=== PATIENT | male | born 1945 | race Caucasian/White ===

== ENCOUNTER → 2019-02-16 | Outpatient (CLI) | payer MEDICARE ==
[2019-02-16 16:16] LABS: Appearance,Urine Clear (Clear); Bilirubin,Urine Negative (Negative); Blood,Urine Negative (Negative); Color,Urine Yellow; Glucose,Urine (UA) Negative (Negative); Ketones,Urine Negative (Negative); Leukocyte Esterase,Urine Negative (Negative); Nitrite,Urine Negative (Negative); Protein,Urine Negative (Negative); Specific Gravity,Urine 1.017 (1.001-1.035); Urobilinogen,Urine <2.0 mg/dL (<2.0)
== END ==
LOC: LABPAT 15:15
PROVIDERS: ATTEND Orthopaedic Surgery
DX: Z01.812 Encounter for preprocedural laboratory examination (principal)
CPT/HCPCS: 81003; 85730; 87070

== ENCOUNTER 2019-03-01 05:46 | Inpatient (IN) | payer MEDICARE ==
[~2019-03-01 05:46] MED LIST: ACETAMINOPHEN TAB 500 MG TAB PO ONE; DEXAMETHASONE SOD PHOSPHATE 10 MG/ML 1 ML VIAL IV ONE; MELOXICAM 7.5 MG TAB PO ONE; MIDAZOLAM 2 MG/2 ML VIAL IV PRN; ONDANSETRON 4 MG/2 ML VIAL IVP ONE; SCOPOLAMINE 1.5MG/72HR PATCH TRANSDERM ONE; TRANEXAMIC ACID 1,000 MG in SODIUM CHLORIDE 0.9% 100 ML IVPB ONE; ceFAZolin IN SWFI 2 GM/20 ML SYRINGE IVP ONE; fentaNYL (PF) 50 MCG/ML 2 ML AMP IV PRN
[2019-03-01] MEDS ORDERED: LIDOCAINE 1% 20 ML VIAL (10MG/ML) FOR IV START INTRADERMA ONE (06:20)
[2019-03-01] MEDS: LACTATED RINGERS 1,000 ML IV SCH ×2 (06:20→09:29)
[2019-03-01] MEDS ORDERED: fentaNYL (PF) 50 MCG/ML 2 ML AMP ONE (06:55)
[2019-03-01] MEDS ORDERED: MIDAZOLAM 2 MG/2 ML VIAL ONE (06:55)
[2019-03-01] MEDS ORDERED: SODIUM CHLORIDE 0.9% 100 ML BAG ONE (06:55)
[2019-03-01] MEDS ORDERED: PHENYLEPHRINE-0.9% NACL SYG 1 MG/10 ML SYRINGE ONE (06:55)
[2019-03-01] MEDS ORDERED: TRANEXAMIC ACID 1,000 MG/10 ML VIAL ONE (06:55)
[2019-03-01] MEDS ORDERED: PROPOFOL 10 MG/ML 20 ML VIAL IV ONE (06:55)
[2019-03-01] MEDS ORDERED: BISACODYL 10 MG SUPP RECTAL PRN (06:57)
[2019-03-01] MEDS ORDERED: DIAZEPAM 5 MG TAB PO PRN (06:57)
[2019-03-01] MEDS ORDERED: MAGNESIUM HYDROXIDE 2,400 MG/10 ML CUP PO PRN (06:57)
[2019-03-01] MEDS ORDERED: HYDROmorphone 0.5 MG/0.5 ML SYRINGE IVP PRN ×2 (06:57)
[2019-03-01] MEDS ORDERED: HYDROcodone/APAP 5-325MG 1 EACH TAB PO PRN (06:57)
[2019-03-01] MEDS ORDERED: NA PHOS,M-B/NA PHOS,DI-BA 133 ML ENEMA RECTAL PRN (06:57)
[2019-03-01] MEDS ORDERED: NALOXONE 0.4 MG/ML 1 ML VIAL IV PRN (06:57)
[2019-03-01] MEDS ORDERED: ONDANSETRON 4 MG/2 ML VIAL IVP PRN (06:57)
[2019-03-01] MEDS ORDERED: LACTATED RINGERS 1,000 ML IV ONE ×2 (07:00→08:00)
[2019-03-01] MEDS ORDERED: ceFAZolin 3,000 MG in SODIUM CHLORIDE 0.9% IRRIGATIO 3,000 ML IRRIGATION ONE (07:30)
[2019-03-01] MEDS: ROPIVACAINE 246.25 MG, EPINEPHrine 0.5 MG, KETOROLAC 30 MG, WATER FOR INJECTION,STERILE... MISCELLANE ONE ×12 (07:32→09:29)
--- NOTE | 2019-03-01 08:49 | P.OP ---
Date of Procedure: 03/01/19 Preoperative Diagnosis: Severe osteoarthritis right knee Postoperative Diagnosis: Severe osteoarthritis right knee Procedure(s) Performed: Right total knee arthroplasty Implants: Tan and Nephew Journey II CR Oxinium cruciate retaining femoral component size 6, right Tan & Nephew Journey right nonporous tibial baseplate size 6 Tan & Nephew Journey II, XLPE CR articular insert, size 9 mm, Size 5-6 right Tan & Nephew Journey BCS resurfacing oval patellar component, 32 mm All components were cemented using Palacos R bone cement.. The articulation is Oxinium on polyethylene. Anesthesia: spinal Surgeon: Tripp Odonnell Slot Attendant #1: Poonam Aguilera Estimated Blood Loss (ml): 50 Pathology: other (Bone and cartilage) Condition: stable Disposition: PACU Indications for Procedure: After failure of conservative treatment we discussed the surgical and nonsurgical treatment options at length. Patient wishes to proceed with a total knee arthroplasty. Complications specific to this procedure were discussed at length, including but not limited to infection, bleeding, stiffness, and nerve injury. Patient is aware of all these complications and informed consent was obtained Operative Findings: The operative findings are consistent with severe osteoarthritis of the right knee Description of Procedure: Patient was seen in the preoperative area consent was reviewed and operative site was marked with a skin marker. An adductor canal pain catheter was placed by anesthesia in the preoperative area. Patient was then brought to the operating room and given preoperative antibiotics intravenously. A spinal anesthetic was administered by the anesthesia department. A tourniquet was placed on the upper thigh and the lower extremity was prepped and draped in usual sterile fashion. A gram of transexamic acid was given. A universal timeout was then performed which confirmed the patient's name, surgical site, ALLERGIES, and consent. The lower extremity was then exsanguinated and tourniquet was inflated to 250 mmHg. A standard and anterior midline approach to the knee was performed. The skin and subcutaneous tissue was dissected down to the patellar tendon. A medial parapatellar arthrotomy was then performed. The knee was then extended, the patellar was everted, and the knee was again flexed. Anterior horns of both menisci were excised, and a release was performed to the posterior medial aspect of the knee. On gross visual inspection, there was complete loss of articular cartilage in the medial and patellofemoral joint spaces. There was also significant cartilage damage in the lateral compartment. There were multiple periarticular osteophytes which were then removed with a Ronguer. The femoral canal was then opened with the appropriate drill, and the intramedullary femoral cutting guide was then placed and set for 5 of valgus. The distal femoral cutting block was then pinned in place, and the distal femur was then cut. The cutting block was then removed and the cut was checked for flatness. Next, the sizing guide was then placed and set for 3 external rotation based off of the epicondylar axis and Whitesides line. After the femur was sized, the appropriate 4-in-1 cutting block was then pinned in place. The anterior condyles were cut without notching. The posterior and chamfer cuts were performed while protecting the collateral ligaments. The cutting block was then removed, and the femoral canal was plugged with autologous bone. Attention was then directed to the tibia. The remaining ACL was removed with a Ronguer, and the tibia was then gently subluxed forward with a large bent knee retractor. Any remaining menisci was excised. The posterior lateral corner was cauterized in order to cauterize the lateral geniculate artery. The extra medullary tibial cutting guide was then placed, set for the appropriate rotation, slope, and depth of resection. The proximal tibia cutting guide was then pinned in place. Proximal tibia was then cut and sized. Next trials were then placed with the appropriate-sized insert. The knee was able to fully extend and flex to 130 and was stable throughout all range of motion. The knee was then extended, patella everted. Patella was then measured, and then using an osteotomy guide, the patella was cut at the appropriate level. The patella was then measured and drilled and the patella trial was then placed. The knee was then taken through range of motion with the patella trial and the patella tracked normally. The knee was then extended patella trial was then removed and the patella was everted. Knee was then flexed and lug holes were drilled through the femoral trial and the femoral trial was then removed. The tibial was then exposed, and the tibial broach guide was then pinned in place after it was set for the appropriate rotation to allow for the most coverage without overhang. The tibia was then reamed and broached. The cut surfaces of bone were then irrigated with pulsatile lavage. The posterior structures were injected with the ropivacaine solution. The knee was also irrigated with Irrisept solution. The components were then opened, the cement was mixed, and the components were then cemented in place. The cement was allowed to harden with the knee in full extension. While the cement was hardening, the remaining soft tissues were then injected with a ropivacaine solution, which consisted of 246.25 mg of ropivacaine, 0.5 mg of epinephrine, 30 mg of Toradol, 80 g of clonidine, and 48.45 mL of sterile water, for a total of 100 mL of fluid injected. After the cemented hardened. The tourniquet was released, and hemostasis was obtained. A second gram of transexamic acid was given. The knee was again irrigated. The knee was again taken through range of motion and found to be stable throughout all range of motion of 0-130, and the patella tracked normally. The fascia was then closed with #2 strata fix suture. The subcutaneous tissue was closed with 3-0 Vicryl and 3-0 strata fix. Dermabond glue was used for the skin and placed with the knee in flexion. The patient was placed in a sterile silver dressing. Patient was then transferred to recovery room in stable condition. The salon assistant APOLINAR Guerra was required due the complexity surgery and the need for a skilled surgical orderly. She assisted in positioning, draping, retraction, and closure of the wound.
[2019-03-01] MEDS ORDERED: ROPIVACAINE 1,100 MG, SODIUM CHLORIDE 0.9% 500 ML 330 ML MISCELLANE PRN ×2 (08:57)
--- NOTE | 2019-03-01 09:09 | XR ---
EXAMINATION TYPE: XR knee limited RT DATE OF EXAM: 03/01/2019 COMPARISON: NONE TECHNIQUE: Two views submitted HISTORY: Post op FINDINGS: There is a prosthetic knee in near anatomic alignment. There is soft tissue edema and emphysema. IMPRESSION: 1. Postoperative change. Appears in near-anatomic alignment
[2019-03-01] MEDS: SODIUM CHLORIDE 0.9% 1,000 ML IV SCH (09:30)
[2019-03-01] MEDS: ASPIRIN 325 MG TAB PO SCH ×2 (09:30→21:46)
[2019-03-01 10:21] VITALS: BMI 28.3
--- NOTE | 2019-03-01 11:28 | P.ANPRN ---
Procedure Note - Anesthesia - Nerve Block Performed Right Adductor Canal Infusion Time Out Performed: Yes Date of Procedure: 03/01/19 Procedure Start Time: 06:28 Procedure Stop Time: 06:38 Location of Patient Procedure: PreOp Indication: Acute Post-Operative Pain, Requested by physician Sedation Type: Sedate with meaningful contact maintained Preparation: Sterile Prep, Sterile Dressing Position: Supine Catheter: Indwelling Needle Types: Pajunk Needle Gauge: 21 Technique: Ultrasound Injectate: 0.5% Ropivacaine (see comment for volume) (ropi .5% 20cc) Blood Aspirated: No Pain Paresthesia on Injection Noted: No Resistance on Injection: Normal Events: Uneventful and Well Tolerated
[2019-03-01] MEDS: HYDROmorphone 0.5 MG/0.5 ML SYRINGE IVP PRN (13:05)
--- NOTE | 2019-03-01 13:15 | P.CONS ---
History of Present Illness - Reason for Consult Perioperative complication management - History of Present Illness Patient is a pleasant 73-year-old gentleman admitted for right knee arthroplasty sepsis and underwent surgery clinically doing well denied any fever chills nausea vomiting abdominal pain dysuria. Patient pain is well controlled at this time. is on ceftezole in as a perioperative antibiotics. Patient on aspirin twice a day for DVT prophylaxis. Review of Systems REVIEW OF SYSTEMS: CONSTITUTIONAL: No fever, no malaise, no fatigue. HEENT: No recent visual problems or hearing problems. Denied any sore throat. CARDIOVASCULAR: No chest pain, orthopnea, PND, no palpitations, no syncope. PULMONARY: No shortness of breath, no cough, no hemoptysis. GASTROINTESTINAL: No diarrhea, no nausea, no vomiting, no abdominal pain. NEUROLOGICAL: No headaches, no weakness, no numbness. HEMATOLOGICAL: Denies any bleeding or petechiae. GENITOURINARY: Denies any burning micturition, frequency, or urgency. MUSCULOSKELETAL/RHEUMATOLOGICAL: Denies any joint pain, swelling, or any muscle pain. ENDOCRINE: Denies any polyuria or polydipsia. The rest of the 14-point review of systems is negative. Past Medical History Past Medical History: Cancer, Hyperlipidemia, Osteoarthritis (OA), Prostate Disorder Additional Past Medical History / Comment(s): PROSTATE CANCER History of Any Multi-Drug Resistant Organisms: None Reported Past Surgical History: Heart Catheterization, Tonsillectomy Additional Past Surgical History / Comment(s): COLONOSCOPY Past Anesthesia/Blood Transfusion Reactions: No Reported Reaction Past Psychological History: Anxiety, Depression Smoking Status: Former smoker Past Alcohol Use History: Daily Additional Past Alcohol Use History / Comment(s): STARTED SMOKING AT AGE 17 QUIT AGE 38 SMOKED 1/2PPD. STATES DRINKS 3 DRINKS A DAY Past Drug Use History: None Reported - Past Family History Mother Family Medical History: No Reported History Medications and Allergies Home Medications Medication Instructions Recorded Confirmed Type Aspirin EC [Ecotrin Low Dose] 81 mg PO DAILY 02/25/19 03/01/19 History Finasteride [Proscar] 5 mg PO DAILY 02/25/19 03/01/19 History Omeprazole 20 mg PO DAILY 02/25/19 03/01/19 History Sertraline HCl [Zoloft] 200 mg PO DAILY 02/25/19 03/01/19 History Simvastatin [Zocor] 80 mg PO HS 02/25/19 03/01/19 History buPROPion HCL [Wellbutrin XL] 300 mg PO DAILY 02/25/19 03/01/19 History busPIRone HCL [Buspar] 15 mg PO BID 02/25/19 03/01/19 History traZODone HCL [Desyrel] 100 mg PO HS 02/25/19 03/01/19 History Allergies Allergy/AdvReac Type Severity Reaction Status Date / Time Sulfa (Sulfonamide Allergy Rash/Hives Verified 03/01/19 10:49 Antibiotics) Physical Exam Vitals: Vital Signs Temp Pulse Pulse Pulse Resp BP Pulse Ox 03/01/19 12:08 69 140/78 03/01/19 11:42 75 16 129/80 98 03/01/19 11:12 76 16 132/83 99 03/01/19 10:58 70 16 132/85 03/01/19 10:42 63 16 116/75 97 03/01/19 10:27 64 16 138/87 99 03/01/19 10:13 62 16 131/81 100 03/01/19 09:57 65 16 130/69 99 03/01/19 09:42 97.0 F L 60 16 134/79 99 03/01/19 09:31 59 L 16 121/75 99 03/01/19 09:18 61 16 108/67 97 03/01/19 09:03 64 16 117/66 97 03/01/19 08:47 98.3 F 72 14 124/66 97 03/01/19 06:40 97 16 97 03/01/19 06:09 81 16 156/80 95 Intake and Output 02/28/19 03/01/19 03/01/19 22:59 06:59 14:59 Intake Total 200 1101 Output Total 50 Balance 200 1051 Intake: IV 200 1101 Output: Estimated Blood Loss 50 PHYSICAL EXAMINATION: GENERAL: The patient is alert and oriented x3, not in any acute distress. Well developed, well nourished. HEENT: Pupils are round and equally reacting to light. EOMI. No scleral icterus. No conjunctival pallor. Normocephalic, atraumatic. No pharyngeal erythema. No thyromegaly. CARDIOVASCULAR: S1 and S2 present. No murmurs, rubs, or gallops. PULMONARY: Chest is clear to auscultation, no wheezing or crackles. ABDOMEN: Soft, nontender, nondistended, normoactive bowel sounds. No palpable or ganomegaly. MUSCULOSKELETAL: No joint swelling or deformity. He post surgically pack no surgical drain in place EXTREMITIES: No cyanosis, clubbing, or pedal edema. NEUROLOGICAL: Gross neurological examination did not reveal any focal deficits. SKIN: No rashes. Assessment and Plan Plan: -Right knee arthroplasty, can you with present pain medications can you and is due to prophylaxis. -Hyperlipidemia -benign prostatic hypertrophy -Anxiety -depression For above-mentioned chronic medical problems patient will be resumed on appropriate home medications. -Alcohol abuse: Counseling was provided but the patient only drinks 3 beers a day do not expect any withdrawals but it's reasonable to start him on withdrawal precautions
[2019-03-01] MEDS: HYDROcodone/APAP 5-325MG 1 EACH TAB PO PRN (16:00)
[2019-03-01] MEDS: ceFAZolin IN SWFI 2 GM/20 ML SYRINGE IVP SCH (16:00)
[2019-03-01] MEDS ORDERED: traZODone HCL 100 MG TAB PO SCH (21:00)
[2019-03-01] MEDS ORDERED: SENNOSIDES-DOCUSATE SODIUM 1 EACH TAB PO SCH (21:00)
[2019-03-01] MEDS ORDERED: ATORVASTATIN 40 MG TAB PO SCH (21:00)
[2019-03-01] MEDS: busPIRone HCl 5 MG TAB PO SCH (21:46)
[2019-03-02] MEDS: SODIUM CHLORIDE 0.9% 1,000 ML IV SCH (00:59)
[2019-03-02] MEDS: ceFAZolin IN SWFI 2 GM/20 ML SYRINGE IVP SCH (00:59)
[2019-03-02] MEDS: HYDROcodone/APAP 5-325MG 1 EACH TAB PO PRN ×2 (02:20→08:29)
[2019-03-02] MEDS: hydrOXYzine PAMOATE 25 MG CAP PO PRN ×2 (02:20→12:36)
[2019-03-02] MEDS: HYDROmorphone 0.5 MG/0.5 ML SYRINGE IVP PRN (05:03)
[2019-03-02] MEDS ORDERED: PANTOPRAZOLE 40 MG TABLET PO SCH (07:30)
[2019-03-02 08:02] LABS: Basophils % (A) 0 %; Eosinophils # (A) 0.1 k/uL (0-0.7); Eosinophils % (A) 1 %; Lymphocytes % (A) 17 %; MCH 31.5 pg (25.0-35.0); MCHC 32.8 g/dL (31.0-37.0); MCV 96.1 fL (80.0-100.0); Mean Platelet Volume 7.1; Monocytes # (A) 0.5 k/uL (0-1.0); Monocytes % (A) 8 %; Neutrophils # (A) 4.1 k/uL (1.3-7.7); Neutrophils % (A) 72 %; Platelet Count 144 k/uL (150-450); RBC 3.75 m/uL (4.30-5.90); RDW 13.3 % (11.5-15.5); WBC 5.7 k/uL (3.8-10.6)
[2019-03-02 08:11] LABS: HGB 11.8 gm/dL (13.0-17.5)
[2019-03-02 08:25] VITALS: BP 123/76; PULSE 72; RESP 16; TEMP 98.3
[2019-03-02] MEDS: ASPIRIN 325 MG TAB PO SCH (08:28)
[2019-03-02] MEDS: busPIRone HCl 5 MG TAB PO SCH (08:29)
[2019-03-02] MEDS ORDERED: FINASTERIDE 5 MG TAB PO SCH (09:00)
[2019-03-02] MEDS ORDERED: SERTRALINE 100 MG TAB PO SCH (09:00)
[2019-03-02] MEDS ORDERED: buPROPion XL 300 MG TAB.ER.24H PO SCH (09:00)
[2019-03-02] MEDS ORDERED: MELOXICAM 7.5 MG TAB PO SCH (09:00)
--- NOTE | 2019-03-02 09:33 | P.DS ---
Providers Date of admission: 03/01/19 05:46 Attending physician: Tripp Odonnell Consults: 03/01/19 06:57 Consult Physician Routine Consulting Provider: Haley Menezes Consult Reason/Comments: medical management Do you want consulting provider notified?: Yes Primary care physician: Jamal Thompson [facility] Course: This is a 73-year-old male with known history of degenerative arthritis of the right knee. The patient presents for evaluation. After discussion and consideration patient elects to proceed with total knee arthroplasty. The patient is seen preoperatively by Dr. Odonnell and medically cleared for surgery by their primary care physician. Patient is admitted to [facility] on 03/01/2019 for total knee arthroplasty. The procedures performed without complication or sequelae. The patient is doing well postoperatively. Labs and vital signs are stable on day of discharge. On day of discharge patient's knee incision is healing well. There is minimal erythema. There is no drainage noted at this time. There is minimal soft tissue swelling to the knee. Patient has full foot and ankle motion without difficulty or pain. Calf is soft and nontender to palpation. Neurovascular status to the right lower extremity is intact. Patient is discharged home in good condition. Opioid start talking form is reviewed and signed at patient bedside. Please see med rec for accurate list of home medications. Plan - Discharge Summary Discharge Rx Participant: Yes New Discharge Prescriptions: New Aspirin 325 mg PO BID #60 tab HYDROcodone/APAP 5-325MG [Blairs 5-325] 1 - 2 tab PO Q6HR PRN #56 tab PRN Reason: Pain Sennosides [Senokot] 1 tab PO BID #60 tablet No Action Aspirin EC [Ecotrin Low Dose] 81 mg PO DAILY Omeprazole 20 mg PO DAILY Finasteride [Proscar] 5 mg PO DAILY Sertraline HCl [Zoloft] 200 mg PO DAILY busPIRone HCL [Buspar] 15 mg PO BID traZODone HCL [Desyrel] 100 mg PO HS buPROPion HCL [Wellbutrin XL] 300 mg PO DAILY Simvastatin [Zocor] 80 mg PO HS Discharge Medication List Aspirin EC [Ecotrin Low Dose] 81 mg PO DAILY 02/25/19 [History] Finasteride [Proscar] 5 mg PO DAILY 02/25/19 [History] Omeprazole 20 mg PO DAILY 02/25/19 [History] Sertraline HCl [Zoloft] 200 mg PO DAILY 02/25/19 [History] Simvastatin [Zocor] 80 mg PO HS 02/25/19 [History] buPROPion HCL [Wellbutrin XL] 300 mg PO DAILY 02/25/19 [History] busPIRone HCL [Buspar] 15 mg PO BID 02/25/19 [History] traZODone HCL [Desyrel] 100 mg PO HS 02/25/19 [History] Aspirin 325 mg PO BID #60 tab 03/02/19 [Rx] HYDROcodone/APAP 5-325MG [Blairs 5-325] 1 - 2 tab PO Q6HR PRN #56 tab 03/02/19 [Rx] Sennosides [Senokot] 1 tab PO BID #60 tablet 03/02/19 [Rx] Follow up Appointment(s)/Referral(s): Tripp Odonnell DO [Doctor of Osteopathic Medicine] - 2 Weeks Activity/Diet/Wound Care/Special Instructions: Weightbearing as tolerated with a walker. CPM 5-6h daily. Leave dressing intact. May be removed by home care nurse or by patient in 10 days. May shower with dressing on. Please follow up with [facility] and call with any questions or concerns, . Discharge Disposition: HOME WITH HOME HEALTH SERVICES
[2019-03-02] MEDS: LACTATED RINGERS 1,000 ML IV SCH (11:31)
--- NOTE | 2019-03-02 13:07 | P.PN ---
Subjective Patient had a right near the breast is being discharged today overall clinically doing well no overnight events. His discharge medication reconciliation was reviewed Constitutional: Denied any fatigue denied any fever. Cardio vascular: denied any chest pain, palpitations Gastrointestinal denied any nausea vomiting Pulmonary: Denied any shortness of breath cough Neurologic denied any new focal deficits All inpatient medications were reviewed and appropriate changes in these medications as dictated in the interval history and assessment and plan. Objective - Vital Signs Vital signs: Vital Signs Temp 98.3 F 03/02/19 06:57 Pulse 72 03/02/19 08:05 Resp 16 03/02/19 08:05 BP 123/76 03/02/19 06:57 Pulse Ox 99 03/02/19 06:57 Intake & Output 03/01/19 03/02/19 03/02/19 18:59 06:59 18:59 Intake Total 1101 Output Total 50 Balance 1051 Intake: IV 1101 Output: Estimated Blood Loss 50 Other: # Voids 1 1 1 - Exam PHYSICAL EXAMINATION: GENERAL: The patient is alert and oriented x3, not in any acute distress. Well developed, well nourished. HEENT: Pupils are round and equally reacting to light. EOMI. No scleral icterus. No conjunctival pallor. Normocephalic, atraumatic. No pharyngeal erythema. No thyromegaly. CARDIOVASCULAR: S1 and S2 present. No murmurs, rubs, or gallops. PULMONARY: Chest is clear to auscultation, no wheezing or crackles. ABDOMEN: Soft, nontender, nondistended, normoactive bowel sounds. No palpable organomegaly. MUSCULOSKELETAL: No joint swelling or deformity. He post surgically pack no surgical drain in place EXTREMITIES: No cyanosis, clubbing, or pedal edema. NEUROLOGICAL: Gross neurological examination did not reveal any focal deficits. SKIN: No rashes. - Labs CBC & Chem 7: 03/02/19 07:13 Labs: Abnormal Lab Results - Last 24 Hours (Table) 03/02/19 Range/Units 07:13 RBC 3.75 L (4.30-5.90) m/uL Hgb 11.8 L D (13.0-17.5) gm/dL Hct 36.0 L (39.0-53.0) % Plt Count 144 L (150-450) k/uL Assessment and Plan Plan: -Right knee arthroplasty, patient's pain is better and patient is being disch arged today -Hyperlipidemia -benign prostatic hypertrophy -Anxiety -depression -Alcohol abuse: Counseling was provided no alcohol withdrawal at this time
== END 2019-03-02 13:45 | disposition home health service (06) | DRG 470 ==
LOC: 2ORMAIN 05:46 → 4SSUR 09:06
PROVIDERS: ADMIT Orthopaedic Surgery; ATTEND Orthopaedic Surgery
PROC: 0SRC069 Replacement of Right Knee Joint with Oxidized Zirconium on Polyethylene Synthetic Substitute, Cemented, Open Approach (ICD-10-PCS; principal; 2019-03-01 07:00)
DX: M17.11 Unilateral primary osteoarthritis, right knee (principal); E78.5 Hyperlipidemia, unspecified; N40.0 Benign prostatic hyperplasia without lower urinary tract symptoms; K21.9 Gastro-esophageal reflux disease without esophagitis; F32.9 Major depressive disorder, single episode, unspecified; F41.9 Anxiety disorder, unspecified; F10.10 Alcohol abuse, uncomplicated; R26.81 Unsteadiness on feet; Z79.82 Long term (current) use of aspirin; Z79.899 Other long term (current) drug therapy; Z71.41 Alcohol abuse counseling and surveillance of alcoholic; Z87.891 Personal history of nicotine dependence; Z98.890 Other specified postprocedural states; Z85.46 Personal history of malignant neoplasm of prostate; Z88.2 Allergy status to sulfonamides; Z82.49 Family history of ischemic heart disease and other diseases of the circulatory system
CPT/HCPCS: 85025

== ENCOUNTER → 2020-04-16 | Outpatient (CLI) | payer MEDICARE, OTHER | END | disposition home or self-care (01) | LOC: LABWHC1 12:00 | PROVIDERS: ATTEND Radiology Radiation Oncology | DX: C61 Malignant neoplasm of prostate (principal) | CPT/HCPCS: 36415; 84153 ==

== ENCOUNTER → 2020-05-16 | Outpatient (CLI) | payer MEDICARE, OTHER ==
[2020-05-16 11:20] LABS: Basophils # (A) 0.1 k/uL (0-0.2); Basophils % (A) 1 %; Eosinophils # (A) 0.3 k/uL (0-0.7); Eosinophils % (A) 6 %; HCT 42.6 % (39.0-53.0); HGB 14.1 gm/dL (13.0-17.5); Lymphocytes % (A) 21 %; MCH 31.4 pg (25.0-35.0); MCV 95.3 fL (80.0-100.0); Mean Platelet Volume 7.4; Monocytes # (A) 0.3 k/uL (0-1.0); Monocytes % (A) 7 %; Neutrophils # (A) 2.9 k/uL (1.3-7.7); Neutrophils % (A) 62 %; Platelet Count 177 k/uL (150-450); RBC 4.47 m/uL (4.30-5.90); WBC 4.7 k/uL (3.8-10.6)
[2020-05-16 11:27] LABS: Calcium 9.8 mg/dL (8.4-10.2)
== END | disposition home or self-care (01) ==
LOC: LABPAT 10:12
PROVIDERS: ATTEND Urology
DX: Z01.818 Encounter for other preprocedural examination (principal); C61 Malignant neoplasm of prostate; R35.0 Frequency of micturition
CPT/HCPCS: 36415; 80048; 85025; 87086

== ENCOUNTER 2020-05-23 08:21 | Day surgery (SDC) | payer MEDICARE, OTHER ==
[2020-05-16 13:27] VITALS: BMI 27.3
--- NOTE | 2020-05-22 18:33 | P.GSHP ---
History of Present Illness H&P Date: 05/22/20 Chief Complaint: Prostate cancer The patient is a 74-year-old male who was originally diagnosed with prostate cancer in 2008 associated with a PSA of 3.51. Random biopsies showed a focus of [place] 3+3 = 6 cancer and the patient opted for active surveillance. Repeat biopsies in 11/2010 showed 3+3=6 cancer in 2 of 12 random biopsies. He again opted for further active surveillance and was also started on finasteride. Random biopsies in 2015 showed Isidra 3+4 = 7 cancer in the right lateral mid and right lateral apex and 3+3 = 6 cancer in the left apex. I encouraged the patient to consider definitive treatment at that time but he opted on further active surveillance. PSA was 3.7 in 06/15, 5.6 in 12/14, 5.0 in 03/16 and 5.7 in 11/17. TRUS on 02/24/2020 showed a prostate volume of 23 cc. Random biopsies showed Isidra 3+4 = 7 cancer in the right mid, right lateral apex, right apex and left apex. The prostate volume was 23 cc. The patient has now opted to proceed with external beam radiation therapy and is admitted for the purpose of SpaceOAR placement to reduce potential rectal toxicity. The patient usually voids every 1-1/2-2 hours during the day and once or twice at night. He has no gross hematuria or rectal bleeding. He describes a moderate urinary flow. He has remained on finasteride. - Constitutional Constitutional: Denies fever - EENT Ears, nose, mouth and throat: Denies vertigo - Cardiovascular Cardiovascular: Denies chest pain, Denies shortness of breath - Respiratory Respiratory: Denies cough, Denies wheezing - Gastrointestinal Gastrointestinal: Reports heartburn, Denies abdominal pain - Genitourinary (Male) Genitourinary: Reports as per HPI Past Medical History Past Medical History: Cancer, Hyperlipidemia, Osteoarthritis (OA), Prostate Disorder Additional Past Medical History / Comment(s): PROSTATE CANCER, heart murmur History of Any Multi-Drug Resistant Organisms: None Reported Past Surgical History: Heart Catheterization, Joint Replacement (Right total knee arthroplasty), Tonsillectomy Additional Past Surgical History / Comment(s): prostate biopsy, Rt knee replaced, COLONOSCOPY Past Anesthesia/Blood Transfusion Reactions: No Reported Reaction Smoking Status: Former smoker - Past Family History Mother Family Medical History: No Reported History Medications and Allergies Home Medications Medication Instructions Recorded Confirmed Type Aspirin EC [Ecotrin Low Dose] 81 mg PO DAILY 02/25/19 05/16/20 History Finasteride [Proscar] 5 mg PO DAILY 02/25/19 05/16/20 History Omeprazole 20 mg PO DAILY 02/25/19 05/16/20 History Simvastatin [Zocor] 80 mg PO HS 02/25/19 05/16/20 History traZODone HCL [Desyrel] 100 mg PO HS 02/25/19 05/16/20 History ARIPiprazole [Abilify] 5 mg PO DAILY 05/16/20 05/16/20 History Gabapentin [Neurontin] 100 mg PO TID 05/16/20 05/16/20 History Multivitamins, Thera [Multivitamin 1 tab PO DAILY 05/16/20 05/16/20 History (formulary)] Sertraline 150 mg PO DAILY 05/16/20 History Thiamine [Vitamin B-1] 100 mg PO DAILY 05/16/20 05/16/20 History Allergies Allergy/AdvReac Type Severity Reaction Status Date / Time Sulfa (Sulfonamide Allergy Rash/Hives Verified 05/16/20 13:19 Antibiotics) Surgical - Exam - General well developed, well nourished, no distress - ENT no hearing loss - Neck no masses, no lymphadectomy - Respiratory normal respiratory effort - Abdomen Abdomen: soft, no organomegaly Hernia: none - Genitourinary normal penis with no external lesions, testicles non-tender - Rectum Rectum: normal sphincter tone, no masses, other (Prostate is 1-2+ enlarged and benign to palpation) Assessment and Plan (1) Prostate cancer Narrative/Plan: The patient will undergo transperineal SpaceOAR placement under general anesthesia performed by Dr. Rm. He is aware of the operative risks which include anesthesia, hematuria or rectal bleeding, infection and temporary difficulty voiding. Status: Acute Code(s): C61 - MALIGNANT NEOPLASM OF PROSTATE SNOMED Code(s): 303683309
[~2020-05-23 08:21] MED LIST changes: -ACETAMINOPHEN TAB 500 MG TAB PO ONE; +HYDROmorphone 0.5 MG/0.5 ML SYRINGE IVP PRN; +LACTATED RINGERS 1,000 ML IV SCH; +LIDOCAINE 1% (10MG/ML) FOR IV START INTRADERMA PRN; -MELOXICAM 7.5 MG TAB PO ONE; -MIDAZOLAM 2 MG/2 ML VIAL IV PRN; +Pre Op ABX Message 1 EACH MISC MISCELLANE ONE; -SCOPOLAMINE 1.5MG/72HR PATCH TRANSDERM ONE; -TRANEXAMIC ACID 1,000 MG in SODIUM CHLORIDE 0.9% 100 ML IVPB ONE; -ceFAZolin IN SWFI 2 GM/20 ML SYRINGE IVP ONE; -fentaNYL (PF) 50 MCG/ML 2 ML AMP IV PRN
[2020-05-23] MEDS ORDERED: ONDANSETRON 4 MG/2 ML VIAL ONE (09:08)
[2020-05-23] MEDS ORDERED: LIDOCAINE 1% (10MG/ML) FOR IV START SQ ONE (09:12)
[2020-05-23] MEDS ORDERED: PROPOFOL 10 MG/ML 20 ML VIAL IV ONE (10:18)
[2020-05-23] MEDS ORDERED: fentaNYL (PF) 50 MCG/ML 2 ML AMP ONE (10:18)
[2020-05-23] MEDS ORDERED: MIDAZOLAM 2 MG/2 ML VIAL ONE (10:18)
[2020-05-23] MEDS ORDERED: LIDOCAINE 2% INJ 20 MG/ML SQ ONE (10:26)
[2020-05-23] MEDS ORDERED: LACTATED RINGERS 1,000 ML IV ONE (10:35)
[2020-05-23] MEDS ORDERED: ceFAZolin 1,000 MG VIAL IVPB ONE (10:38)
--- NOTE | 2020-05-23 11:10 | P.OP ---
Date of Procedure: 05/23/20 Preoperative Diagnosis: Prostate cancer Postoperative Diagnosis: Same Procedure(s) Performed: SpaceOar Implant Anesthesia: MAC Surgeon: Jose Rm Estimated Blood Loss (ml): 10 IV fluids (ml): 300 Pathology: none sent Condition: stable Disposition: PACU Indications for Procedure: The patient is a 74-year-old male who was originally diagnosed with prostate cancer in 2008 associated with a PSA of 3.51. Random biopsies showed a focus of [place] 3+3 = 6 cancer and the patient opted for active surveillance. Repeat biopsies in 11/2010 showed 3+3=6 cancer in 2 of 12 random biopsies. He again opted for further active surveillance and was also started on finasteride. Random biopsies in 2015 showed [place] 3+4 = 7 cancer in the right lateral mid and right lateral apex and 3+3 = 6 cancer in the left apex. I encouraged the patient to consider definitive treatment at that time but he opted on further active surveillance. PSA was 3.7 in 06/15, 5.6 in 12/14, 5.0 in 03/16 and 5.7 in 11/17. TRUS on 02/24/2020 showed a prostate volume of 23 cc. Random biopsies showed [place] 3+4 = 7 cancer in the right mid, right lateral apex, right apex and left apex. The prostate volume was 23 cc. The patient has now opted to proceed with external beam radiation therapy and is admitted for the purpose of SpaceOAR placement to reduce potential rectal toxicity. Operative Findings: Excellent separation created between prostate and rectum. Description of Procedure: The patient was taken to the operating room and placed in the dorsolithotomy position, with his legs supported in Brendan stirrups. The external genitalia was prepped and draped sterilely. The Bruel and Kjaer transrectal ultrasound probe was placed intrarectally. The prostate was imaged. The probe was then placed within the stabilizing stand. A spinal needle was advanced under ultrasonic guidance to the level of the urogenital diaphragm, and lidocaine was used to infiltrate the tissues as the needle was withdrawn. Next, the SpaceOAR needle was passed through the midline of the perineum, 1-2 cm anterior to the anal opening. The needle was slowly advanced under ultrasonic guidance until the needle tip was located within the fat plane between the prostate and rectum, at the level of the mid prostate gland. The needle was confirmed to be midline on the axial imaging. A small amount of normal saline was injected for hydrod issection. Next, the SpaceOAR components were mixed and loaded into the Y connector per protocol. The Y connector was then connected to the needle, and the components were injected slowly over a course of approximately 12 seconds. A total of 10 ml was injected. Significant distance was created between the prostate and rectum, as desired. It should be noted that at no point was there any concern of rectal perforation. The needle was withdrawn, as well as the transrectal ultrasound probe, and the procedure was terminated. The patient tolerated the procedure well and was taken to the recovery room in stable condition.
[2020-05-23 11:14] VITALS: TEMP 97
[2020-05-23 11:51] VITALS: RESP 16
[2020-05-23 12:03] VITALS: BP 126/83; PULSE 60
== END 2020-05-23 12:32 | disposition home or self-care (01) ==
LOC: OR 08:21
PROVIDERS: ATTEND Urology
DX: C61 Malignant neoplasm of prostate (principal); E78.5 Hyperlipidemia, unspecified; M19.90 Unspecified osteoarthritis, unspecified site; R01.1 Cardiac murmur, unspecified; M54.5 Low back pain; Z88.2 Allergy status to sulfonamides; Z79.899 Other long term (current) drug therapy; Z98.890 Other specified postprocedural states; Z96.651 Presence of right artificial knee joint; Z87.891 Personal history of nicotine dependence; Z79.82 Long term (current) use of aspirin; Z90.89 Acquired absence of other organs
CPT/HCPCS: 55874; J2001; J2250; J1100; J2405; J0690; J3010; J2704

== ENCOUNTER → 2020-06-12 | Outpatient (CLI) | payer MEDICARE, OTHER ==
--- NOTE | 2020-06-12 14:11 | CT ---
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 CONTRAST: CTA scan of the thorax is performed with IV Contrast, patient injected with 100 mL of Isovue 370, tho racic aneurysm protocol. 3D reconstructed images are created on an independent workstation and revie wed. MIP images are created and reviewed on independent workstation. FINDINGS: LUNGS: The lungs are grossly clear, there is no concerning parenchymal mass or nodule identified. T here is no pleural effusion or pneumothorax seen. The tracheobronchial tree is patent. 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 There is no CT evidence for dissection. Minimal calcified atherosclerotic disease of the aortic arch. Tortuous course of the descending thora cic aorta. There is opacification of the main pulmonary arterial trunk and segmental branches with no evidence of central large pulmonary embolism. Cardiac size normal. No pericardial effusion. There ar e no greater than 1 cm hilar or mediastinal lymph nodes. OTHER: Normal adrenal glands. Left renal cyst incompletely visualized. Age-indeterminate moderate co mpression deformity of what is likely L1, with mild retropulsion. IMPRESSION: 1. 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 No thoracic aortic dissection. 2. Age-indeterminate moderate compression deformity of what is likely L1, with mild retropulsion. Rec ommend correlation with patient history, point tenderness, or any prior available imaging.
== END | disposition home or self-care (01) ==
LOC: RADCTMAIN 06:51
PROVIDERS: ATTEND Internal Medicine Cardiovascular Disease
DX: I71.2 Thoracic aortic aneurysm, without rupture (principal)
CPT/HCPCS: 82565; 84520; 71275; 36415; Q9967

== ENCOUNTER → 2020-12-12 | Outpatient (CLI) | payer MEDICARE, OTHER | END | disposition home or self-care (01) | LOC: LABWHC1 12:48 | PROVIDERS: ATTEND Radiology Radiation Oncology | DX: C61 Malignant neoplasm of prostate (principal); Z87.891 Personal history of nicotine dependence | CPT/HCPCS: 36415; 84153 ==

== ENCOUNTER → 2021-02-18 | Outpatient (CLI) | payer MEDICARE, OTHER ==
[2021-02-18 15:02] LABS: Chol/HDL Ratio 2.89; LDL Cholesterol,Calculated 86.8 mg/dL (0.0-131.0); VLDL Calculation 13.2 mg/dL (5.00-40.00)
== END | disposition home or self-care (01) ==
LOC: LABWHC1 10:37
PROVIDERS: ATTEND Internal Medicine Cardiovascular Disease
DX: E78.2 Mixed hyperlipidemia (principal)
CPT/HCPCS: 36415; 80061; 84450; 84460

== ENCOUNTER → 2021-06-14 | Outpatient (CLI) | payer MEDICARE, OTHER | END | disposition home or self-care (01) | LOC: LABWHC1 11:51 | PROVIDERS: ATTEND Radiology Radiation Oncology | DX: C61 Malignant neoplasm of prostate (principal); Z92.3 Personal history of irradiation; Z87.891 Personal history of nicotine dependence | CPT/HCPCS: 36415; 84153 ==

== ENCOUNTER → 2021-12-12 | Outpatient (CLI) | payer MEDICARE, OTHER | END | disposition home or self-care (01) | LOC: LABWHC1 11:23 | PROVIDERS: ATTEND Radiology Radiation Oncology | DX: C61 Malignant neoplasm of prostate (principal); Z92.3 Personal history of irradiation; Z87.891 Personal history of nicotine dependence | CPT/HCPCS: 36415; 84153 ==

== ENCOUNTER → 2022-06-18 | Outpatient (CLI) | payer MEDICARE, OTHER | END | disposition home or self-care (01) | LOC: LABWHC1 13:45 | PROVIDERS: ATTEND Radiology Radiation Oncology | DX: C61 Malignant neoplasm of prostate (principal); R35.1 Nocturia; Z92.3 Personal history of irradiation; Z87.891 Personal history of nicotine dependence | CPT/HCPCS: 36415; 84153 ==

== ENCOUNTER → 2022-12-10 | Outpatient (CLI) | payer MEDICARE, OTHER | END | disposition home or self-care (01) | LOC: LABWHC1 12:46 | PROVIDERS: ATTEND Radiology Radiation Oncology | DX: Z08 Encounter for follow-up examination after completed treatment for malignant neoplasm (principal); C61 Malignant neoplasm of prostate; Z85.46 Personal history of malignant neoplasm of prostate; R35.1 Nocturia; Z92.3 Personal history of irradiation; Z87.891 Personal history of nicotine dependence | CPT/HCPCS: 36415; 84153 ==

== ENCOUNTER → 2024-04-18 | Outpatient (CLI) | payer MEDICARE, OTHER ==
--- NOTE | 2024-04-18 11:13 | US ---
EXAMINATION TYPE: US venous doppler duplex LE RT DATE OF EXAM: 04/18/2024 10:55 AM COMPARISON: none CLINICAL INDICATION: Male, 78 years old with history of M79.661 PAIN IN RIGHT LOWER LEG, R60.0; rt ca lf pain and bruising SIDE PERFORMED: Right TECHNIQUE: The lower extremity deep venous system is examined utilizing real time linear array sonog armando with graded compression, doppler sonography and color-flow sonography. VESSELS IMAGED: Common Femoral Vein Deep Femoral Vein Greater Saphenous Vein * Femoral Vein Popliteal Vein Small Saphenous Vein * Proximal Calf Veins (* superficial vessels) Right Leg: Negative for DVT There is a 10.4x1.6x3.9cm complex fluid collection along the medial calf Order confirmed by office. Per Stefany, Lower extremity venous exam. Attempted to call office with results, no answer. IMPRESSION: Grayscale, color doppler, spectral doppler imaging performed of the deep veins of the lo wer extremities. There is normal flow, compressibility, vascular waveforms.
== END | disposition home or self-care (01) ==
LOC: RADUSWWP 10:24
PROVIDERS: ATTEND Family Medicine
DX: M79.661 Pain in right lower leg (principal); R60.0 Localized edema

== ENCOUNTER → 2024-06-16 | Outpatient (CLI) | payer MEDICARE, OTHER | END | disposition home or self-care (01) | LOC: LABWHC1 11:21 | PROVIDERS: ATTEND Radiology Radiation Oncology | DX: Z08 Encounter for follow-up examination after completed treatment for malignant neoplasm (principal); C61 Malignant neoplasm of prostate; R35.1 Nocturia; Z92.3 Personal history of irradiation; Z87.891 Personal history of nicotine dependence; Z85.46 Personal history of malignant neoplasm of prostate | CPT/HCPCS: 36415; 84153 ==